=== PATIENT | female | born 1985 | race Caucasian/White ===

== ENCOUNTER → 2018-03-19 | Outpatient (CLI) | payer BC ==
[2018-03-19 16:43] LABS: CALCIUM 9.1 mg/dL (8.4-10.2); CREATININE, serum 0.57 mg/dL (0.52-1.25); POTASSIUM 4.1 mmol/L (3.4-5.0)
== END ==
LOC: COL.LAB 16:02
PROVIDERS: Family Medicine
DX: E87.6 Hypokalemia (principal)

== ENCOUNTER → 2021-07-24 | Outpatient (CLI) | payer BC | LOC: COL.LAB 09:37 | DX: E78.5 Hyperlipidemia, unspecified (principal) ==

== ENCOUNTER → 2021-09-21 | Outpatient (CLI) | payer BC | LOC: COL.LAB 09:42 | DX: E78.5 Hyperlipidemia, unspecified (principal) ==